=== PATIENT | female | born 2000 | race Caucasian/White ===

== ENCOUNTER 2021-09-11 15:58 | Emergency (ER) | payer OTHER, SELFPAY ==
--- NOTE | ~2021-09-11 | XR_ITS ---
EXAMINATION: LEFT ANKLE, LEFT FOOT CLINICAL INFORMATION: Injury COMPARISON: None TECHNIQUE: 2 views left ankle, 3 views left foot FINDINGS: There is lateral soft tissue swelling seen. No ankle fracture is identified. The ankle mortise appears stable and intact. No ankle joint effusion is present. No foot fracture is seen. XR/XR ankle LT min 3V IMPRESSION: Lateral soft tissue swelling at the ankle. No other abnormalities are seen.
--- NOTE | ~2021-09-11 | XR_ITS ---
EXAMINATION: LEFT ANKLE, LEFT FOOT CLINICAL INFORMATION: Injury COMPARISON: None TECHNIQUE: 2 views left ankle, 3 views left foot FINDINGS: There is lateral soft tissue swelling seen. No ankle fracture is identified. The ankle mortise appears stable and intact. No ankle joint effusion is present. No foot fracture is seen. XR/XR foot LT min 3V IMPRESSION: Lateral soft tissue swelling at the ankle. No other abnormalities are seen.
[2021-09-11 17:33] VITALS: BP 141/83; PULSE 95; RESP 18; TEMP 37.3; O2SAT 98; BMI 26.5
--- NOTE | 2021-09-11 18:17 | ED.LOWEXIN ---
HPI - Extremity Injury (Lower) General Chief Complaint: Extremity Injury, Lower Stated Complaint: broken/ fractured ankle- L Time Seen by Provider: 09/11/21 17:25 Source: patient Mode of arrival: ambulatory Limitations: no limitations History of Present Illness HPI Narrative: Patient is a 21 year old female presenting to the emergency department today with left foot and ankle pain. Patient states that she missed a step and twisted her left ankle then landed on her left foot. Patient states this happened 2 days ago and yesterday, she had [facility]. Patient denies shitting her head with the incident. Patient denies any loss of consciousness with the incident. Patient denies any dizziness, lightheadedness, abdominal pain, nausea, vomiting, fever, chills, blurry vision, double vision, loss of vision, chest pain, difficulty breathing, shortness of breath, back pain, night sweats, pain with urination, increased urinary frequency, increased urinary urgency, blood in her urine or stool, syncope or a near syncopal episode, bowel incontinence, bladder incontinence, bowel retention, bladder retention, or any other complaints at this time. Related Data Allergies Allergy/AdvReac Type Severity Reaction Status Date / Time amoxicillin [From Augmentin] Allergy Unknown Verified 09/11/21 17:32 clavulanic acid Allergy Unknown Verified 09/11/21 17:32 [From Augmentin] latex AdvReac Anaphylaxis Verified 09/11/21 17:32 shellfish derived AdvReac Anaphylaxis Verified 09/11/21 17:32 tree nut AdvReac Anaphylaxis Verified 09/11/21 17:32 Review of Systems Constitutional: Constitutional: Reports no additional constitutional complaints, Denies chills, Denies fever(s) and Denies night sweats Eyes: Eyes: Reports no additional eye complaints, Denies blurry vision, Denies change in vision, Denies diplopia, Denies eye discharge, Denies loss of vision and Denies eye pain ENT: Denies dizziness Cardiovascular: Cardiovascular: Reports no additional cardiovascular complaints, Denies chest pain, Denies lightheadedness, Denies Loss of Consciousness and Denies dyspnea Respiratory: Respiratory: Reports no additional respiratory complaints and Denies dyspnea Gastrointestinal: Gastrointestinal: Reports no additional gastrointestinal complaints, Denies abdominal pain, Denies melena, Denies hematochezia, Denies change in bowel habits and Denies change in stool character Genitourinary: Genitourinary: Denies hematuria, Denies urinary frequency, Denies dysuria, Denies urinary incontinence, Denies urinary hesitancy and Denies urinary urgency Musculoskeletal: Musculoskeletal: Reports no additional musculoskeletal complaints, Denies numbness and Denies tingling Neurologic: Denies dizziness, Denies loss of vision, Denies numbness and Denies tingling Psychiatric: Psychiatric: Reports no additional psychiatric complaints Endocrine: Endocrine: Reports no additional endocrine complaints Hematologic/Lymphatic: Hematologic/Lymphatic: Reports no additional hematologic/lymphatic complaints Allergic/Immunologic: Allergic/Immunologic: Reports no additional allergic/immunologic complaints [facility] Past Medical History Attestation statement: The following information was validated with the patient. Source: old records reviewed Social History Social History Advance Directives: No Advance Directives Information Provided: No Patient : No Physical Exam Vital Signs: Vital Signs: Last Vital Signs Temp 99.1 F 09/11/21 17:33 Pulse 95 09/11/21 17:33 Resp 18 09/11/21 17:33 BP 141/83 H 09/11/21 17:33 Pulse Ox 98 09/11/21 17:33 BMI result Body Mass Index 26.5 Const: General: cooperative, no acute distress, alert and awake Nutritional Appearance: well nourished Orientation/consciousness: patient oriented x3 Limitations: no limitations HENMT: Head: Yes normal to inspection and Yes atraumatic Ears: hearing grossly normal bilaterally and external ears normal General nose exam: Normal external nose present, no nasal discharge noted and no epistaxis Face and sinus: Yes normal facial exam, No abrasion and No laceration Mouth: Normal oral and palatal mucosa present, no drooling and no muffled voice Eyes: General: appearance normal, both eyes and all related structures Periorbital: periorbital findings normal Eyelids: Yes eyelids normal Conjunctivae: conjunctivae normal Pupils: Equal, round and reactive pupils present EOM: EOMs intact bilaterally Neck: Neck: Yes normal visual inspection, Yes full ROM and Yes no lymphadenopathy Chest: Chest palpation & inspection: normal inspection of the chest Resp: Effort & Inspection: normal respiratory effort and able to speak in complete sentences Auscultation: clear to auscultation bilaterally Cardio: Rate: regular rate Rhythm: regular rhythm GI: Inspection: Yes normal to inspection Neuro: General: patient oriented x3 and moves all extremities Cranial nerves: Yes Equal, round and reactive pupils present Cognition (Neuro): normal cognition Motor exam (neuro): 5/5 motor strength present throughout Sensory Exam: Normal double simultaneous stimulation for sensation Coordination: [id number] test normal Extrem: Other: left foot has mild swelling and bruising to the lateral aspect General: Yes normal to inspection, Yes full ROM and Yes capillary refill normal Psych: Appearance: grossly normal Mental Status: mental status grossly normal Affect: normal affect Attitude: cooperative Thought process: Normal thought process present Thought content: Normal thought content present Insight: Good insight present (Psych) MDM - Extremity Injury (Lower) MDM Narrative Medical decision making narrative: Patient is a 21 year old female presenting to the emergency department today with left foot and left ankle pain. Patient's physical exam showed minimal swelling and bruising to the lateral aspect of the left foot. ROM and PMS intact to the left lower extremity.. Patient's left foot and left ankle x-ray showed no acute process. I explained my physical exam findings as well as all test results to the patient. I answered all questions asked by the patient. Patient was placed in a walking boot and given crutches. I stressed the importance of the patient following up with her primary care provider. I stressed the importance of the patient returning to the emergency department immediately if her symptoms were to worsen or if she were to develop any dizziness, shortness of breath, difficulty breathing, chest pain, blurry vision, loss of vision, nausea, vomiting, abdominal pain, fever, chills, back pain, or any other complaints. Patient verbalized agreement and understanding with this treatment plan and discharge. Differential Diagnosis Differential diagnosis: Likely ankle sprain and strain and ankle fracture Medical Records Attestation: I reviewed the patient's medical records. Imaging Data Left ankle and foot x-ray: Attestation: I personally reviewed and interpreted this imaging study as follows: Radiologist's impression: EXAMINATION: LEFT ANKLE, LEFT FOOT CLINICAL INFORMATION: Injury? COMPARISON: None? TECHNIQUE: 2 views left ankle, 3 views left foot? FINDINGS: There is lateral soft tissue swelling seen. No ankle fracture is identified. The ankle mortise appears stable and intact. No ankle joint effusion is present. No foot fracture is seen.? XR/XR foot LT min 3V IMPRESSION: Lateral soft tissue swelling at the ankle. No other abnormalities are seen.? Dictated By: ARIAS MEDELLIN MD Signed By: Electronically signed by ARIAS MEDELLIN MD 09/11/21 4435 Discharge Plan Discharge Clinical Impression: Ankle sprain and strain Patient Disposition: Home, Self-Care Instructions: Ankle Sprain (DC), Crutch Instructions (ED), Walking Boot (ED) Additional Instructions: Follow up with your primary care provider. Return to the emergency department immediately if your symptoms worsen or if you develop any dizziness, shortness of breath, difficulty breathing, chest pain, blurry vision, loss of vision, nausea, vomiting, abdominal pain, fever, chills, back pain, or any other complaints. Print Language: Indonesian
== END 2021-09-11 19:28 | disposition home or self-care (01) ==
PROVIDERS: Emergency Provider Emergency Medicine
DX: S93.402A Sprain of unspecified ligament of left ankle, initial encounter (principal); S96.912A Strain of unspecified muscle and tendon at ankle and foot level, left foot, initial encounter; W10.8XXA Fall (on) (from) other stairs and steps, initial encounter; Y93.89 Activity, other specified; Y92.520 Airport as the place of occurrence of the external cause; Y99.9 Unspecified external cause status
CPT/HCPCS: 73610; 73630; 99283